=== PATIENT | female | born 1975 | race Caucasian/White ===

== ENCOUNTER 2020-11-24 00:24 | Emergency (ER) | payer OTHER ==
[~2020-11-24 00:24] MED LIST: FLONASE 0.05% N16 GM; IBUPROFEN600 MG PO; Magic Mouth Wash PO; SUDAFED 60 MG T60 MG PO
[2020-11-24] MEDS ORDERED: ERYTHROMYCIN O3.5 GM OS (01:03)
== END 2020-11-24 01:55 | disposition home or self-care (01) ==
LOC: ER1 00:24
DX: T15.02XA Foreign body in cornea, left eye, initial encounter (principal); Z90.89 Acquired absence of other organs; W45.8XXA Other foreign body or object entering through skin, initial encounter
CPT/HCPCS: 65205; 99283

== ENCOUNTER 2021-09-19 22:20 | Emergency (ER) | payer OTHER ==
[~2021-09-19 22:20] MED LIST changes: +ERYTHROMYCIN O3.5 GM OS
== END 2021-09-19 23:40 | disposition home or self-care (01) ==
LOC: ER1 22:20
DX: S90.121A Contusion of right lesser toe(s) without damage to nail, initial encounter (principal); W22.8XXA Striking against or struck by other objects, initial encounter; Y92.009 Unspecified place in unspecified non-institutional (private) residence as the place of occurrence of the external cause
CPT/HCPCS: 73630; 99283